=== PATIENT | male | born 1970 | race African-American/Black ===

== ENCOUNTER 2018-07-18 20:35 | Emergency (ER) | payer SELFPAY ==
[~2018-07-18] VITALS: Ht 175.3 cm; Wt 104.3 kg
--- NOTE | 2018-07-18 20:36 | NUR ---
ED Nurse Note: Patient not in waiting room, family states that he is at restroom
[2018-07-18] MEDS ORDERED: NKM (20:46)
--- NOTE | 2018-07-18 20:49 | NUR ---
ED Nurse Note: EKG completed, Reviewed by Dr. Downs
[2018-07-18 21:30] VITALS: BP 141/89
[2018-07-18 21:50] VITALS: BP 150/93
--- NOTE | 2018-07-18 21:50 | NUR ---
ER DISCHARGE NOTE: Patient is cleared to be discharged per ERMD, pt is aox4, on room air, with stable vital signs. pt was given dc and prescription instructions, pt was able to verbalize understanding, pt id band removed . pt is able to ambulate with steady gait. pt took all belongings.
--- NOTE | 2018-07-19 02:39 | Emergency Room Report ---
History of Present Illness General Chief Complaint: Chest Pain Source: Patient Present Illness HPI Patient persist with list of midsternal chest pain Reports that started 2 days ago patient admits to smoking a marijuana through a blunt Also reports he started exercising recently Denies any active chest pain currently denies any shortness of breath or pleurisy Denies any back or flank pain denies any upper extremity discomfort Allergies: Coded Allergies: No Known Allergies (Unverified , 07/18/18) Patient History Past Medical History: see triage record Pertinent Family History: none Reviewed Nursing Documentation: PMH: Agreed; PSxH: Agreed Nursing Documentation-PMH Past Medical History: No Stated History Review of Systems All Other Systems: negative except mentioned in HPI Physical Exam Vital Signs Date Time Temp Pulse Resp B/P (MAP) Pulse Ox O2 Delivery O2 Flow Rate FiO2 07/18/18 20:42 98.1 65 18 150/93 97 Room Air Sp02 EP Interpretation: reviewed, normal General Appearance: well appearing, no apparent distress Head: normocephalic, atraumatic Eyes: bilateral eye PERRL, bilateral eye EOMI ENT: hearing grossly normal, normal pharynx, TMs + canals normal, uvula midline Neck: full range of motion, supple, no meningismus, no bony tend Respiratory: lungs clear, normal breath sounds, no rhonchi, no respiratory distress, no retraction, no accessory muscle use Cardiovascular #1: normal peripheral pulses, regular rate, rhythm, no edema, no gallop, no JVD, no murmur Gastrointestinal: normal bowel sounds, non tender, soft, no mass, no organomegaly, non-distended, no guarding, no hernia, no pulsatile mass, no rebound Genitourinary: no CVA tenderness Musculoskeletal: normal inspection Neurologic: oriented x3, responsive, satellite manager III-XII nml as tested, motor strength/ tone normal, sensory intact Psychiatric: mood/affect normal Skin: normal color, no rash, warm/dry, palpation normal Lymphatic: normal inspection, no adenopathy Medical Decision Making Diagnostic Impression: Primary Impression: Chest pain ER Course Patient has a fairly benign medical evaluation EKG is performed and showed a normal sinus rhythm x-ray also is appropriate Patient continues to be asymptomatic throughout his stay and is stable for close outpatient follow-up EKG Diagnostic Results Rate: normal Rhythm: NSR ST Segments: no acute changes Rhythm Strip Diag. Results EP Interpretation: yes Rate: 60 Rhythm: NSR, no PVC's, no ectopy Chest X-Ray Diagnostic Results Chest X-Ray Diagnostic Results : Chest X-Ray Ordered: Yes # of Views/Limited/Complete: 1 View Indication: Chest Pain EP Interpretation: Yes Interpretation: no consolidation, no effusion, no pneumothorax Impression: No acute disease Electronically Signed by: Maximilian Downs DO Last Vital Signs Date Time Temp Pulse Resp B/P (MAP) Pulse Ox O2 Delivery O2 Flow Rate FiO2 07/18/18 21:50 98.1 18 150/93 97 Room Air 07/18/18 21:30 65 Status: improved Disposition: HOME, SELF-CARE Condition: Improved Referrals: NOT CHOSEN IPA/,REFERRING (PCP) [facility] Patient Instructions: Nonspecific Chest Pain Additional Instructions: Patient is provided with the discharge instructions notified to follow up with primary doctor in the next 2-3 days otherwise return to the er with any worsening symptoms. Please note that this report is being documented using [employer] technology. This can lead to erroneous entry secondary to incorrect interpretation by the dictating instrument. Maximilian Downs DO Jul 19, 2018 02:39
--- NOTE | 2018-07-19 12:35 | Diagnostic Imaging Report ---
Indication: Dyspnea Comparison: None A single view chest radiograph was obtained. Findings: Cardiomediastinal appearance is within normal limits for age. The lungs are clear. Pulmonary vascularity is appropriate. The diaphragmatic contour is smooth and costophrenic angles are sharp. No pleural effusions are identified. The bones are unremarkable. Impression: No acute findings
== END 2018-07-18 21:50 | disposition home or self-care (01) ==
LOC: EMR 21:06
DX: R07.9 Chest pain, unspecified (principal)
CPT/HCPCS: 71045; 99283